=== PATIENT | male | born 1995 | race Caucasian/White ===

== ENCOUNTER 2018-11-24 17:55 | Emergency (ER) | payer OTHER ==
[~2018-11-24] VITALS: Ht 190.5 cm; Wt 78.9 kg
[2018-11-24] MEDS ORDERED: ALDACTONE50 MG PO (18:16)
[2018-11-24] MEDS ORDERED: ESTRADIOL 1 MG T1 M1 PO (18:16)
[2018-11-24] MEDS ORDERED: MEDROLDOSEPACK PO (19:22)
[2018-11-24] MEDS ORDERED: NAPROSYN500 MG PO (19:22)
[2018-11-24] MEDS ORDERED: FLEXERIL PO (19:22)
[2018-11-24 19:40] VITALS: BP 142/78
== END 2018-11-24 19:45 | disposition home or self-care (01) ==
LOC: M.ERS 17:55
DX: M51.26 Other intervertebral disc displacement, lumbar region (principal); Z90.49 Acquired absence of other specified parts of digestive tract